=== PATIENT | male | born 1970 | race Caucasian/White ===

== ENCOUNTER 2021-08-04 06:00 | Day surgery (SDC) | payer BC, SELFPAY ==
[~2021-08-04] VITALS: Ht 172.7 cm; Wt 90.7 kg
[2021-08-04] MEDS ORDERED: SIMETHICONE 40 MG/0.6 ML ML ONE (06:35)
[2021-08-04] MEDS ORDERED: MEPERIDINE 100 MG INJ. 100 MG/ML VIAL ONE (06:35)
[2021-08-04] MEDS ORDERED: MIDAZOLAM HCL 5 MG/5 ML VIAL ONE (06:36)
[2021-08-04] MEDS ORDERED: DIPHENHYDRAMINE INJ 50 MG/ML VIAL ONE (07:06)
[2021-08-04 12:48] VITALS: BP_SYST 134
== END 2021-08-04 09:10 | disposition home or self-care (01) ==
LOC: SGI 06:00 → SMU 06:00 → SGI 09:10
PROVIDERS: ATTEND Internal Medicine Gastroenterology
DX: Z12.11 Encounter for screening for malignant neoplasm of colon (principal); K70.31 Alcoholic cirrhosis of liver with ascites; K63.5 Polyp of colon; K29.50 Unspecified chronic gastritis without bleeding; K31.89 Other diseases of stomach and duodenum; K64.8 Other hemorrhoids; R19.5 Other fecal abnormalities; R03.0 Elevated blood-pressure reading, without diagnosis of hypertension; Z20.822 Contact with and (suspected) exposure to COVID-19
CPT/HCPCS: 36415; 43239; 43244; 45385; 87081; 88305; 88312; 88313; 99152; 99153; G0378; J1200; J2175; J2250; U0003